=== PATIENT | male | born 1960 | race Caucasian/White ===

== ENCOUNTER 2018-12-22 06:01 | Day surgery (SDC) ==
--- NOTE | 2018-12-16 07:49 | EKG Report ---
Test Performed on : 12/16/2018 07:40:09 AM Test Reason : PAT Blood Pressure : / mmHG Vent. Rate : 093 BPM Atrial Rate : 093 BPM P-R Int : 180 ms QRS Dur : 092 ms QT Int : 358 ms P-R-T Axes : 043 -29 033 degrees QTc Int : 445 ms Normal sinus rhythm. Normal ECG No previous ECGs available Unconfirmed Result
[2018-12-16 08:17] LABS: BASO# 0.13 X1000 (0.0-0.2); BASO% 1.2 % (0.0-0.8); EOS# 0.92 X1000 (0.0-0.7); EOS% 8.5 % (0.0-10.0); HEMATOCRIT 47.7 % (42.0-52.0); IMM GRAN# 0.05 X1000 (0.0-0.04); IMM GRAN% 0.5 % (0.0-0.5); LYMPH% 26.9 % (20.5-51.1); MCH 31.1 PG (27-31); MCHC 33.5 g/dL (33-37); MCV 92.8 FL (81-99); MONO# 0.89 X1000 (0.11-0.59); MONO% 8.3 % (1.7-9.3); MPV 8.9 FL (7.4-10.4); NEUT# 5.89 X1000 (1.4-6.5); NEUT% 54.6 % (42.2-75.2); PLT 347 X1000 (130-400); RBC 5.14 XMIL (4.7-6.1); RDW 14.6 % (11.5-14.5); WBC 10.78 X1000 (4.8-10.8)
[2018-12-16 08:21] LABS: INR 0.93; PROTIME 13.2 Seconds (11.0-16.0)
[2018-12-16 08:22] LABS: PTT 29.7 Seconds (22.3-41.8)
[2018-12-16 08:54] LABS: AGAP 13; BUN 21 mg/dL (8-22); CALCIUM 9.4 mg/dL (8.8-10.2); CHLORIDE 101 mmol/L (98-107); COSMO 282; CREATININE 1.2 mg/dL (0.7-1.2); ESTIMATED GFR > 60; GLUCOSE 93 mg/dL (70-104); POTASSIUM 4.1 mmol/L (3.5-5.1); SODIUM 140 mmol/L (136-145); TCO2 26 mmol/L (25-35)
[2018-12-16 13:31] LABS: URINE SOURCE CLEAN CATCH
[2018-12-16 13:37] LABS: BILIRUBIN URINE NEGATIVE (NEGATIVE); BLOOD URINE NEGATIVE (NEGATIVE); COLOR YELLOW; GLUCOSE URINE NEGATIVE (NEGATIVE); KETONE URINE NEGATIVE (NEGATIVE); LEUKOCYTES URINE NEGATIVE (NEGATIVE); NITRITE URINE NEGATIVE (NEGATIVE); PH URINE 6.5; PROTEIN URINE NEGATIVE (NEGATIVE); SP GRAVITY URINE 1.021; TURBIDITY URINE CLEAR (CLEAR); UR EPITHELIAL CELLS <10 /HPF (<10); URINE BACTERIA NEGATIVE /HPF; URINE RBC <10 /HPF (<10); URINE WBC <10 /HPF (<10); UROBILINOGEN URINE NORMAL (NORMAL)
[2018-12-22] MEDS ORDERED: COLACE ONE (06:13)
[2018-12-22] MEDS ORDERED: LYRICA ONE (06:13)
[2018-12-22] MEDS ORDERED: REGLAN ONE (06:13)
[2018-12-22] MEDS ORDERED: PEPCID ONE (06:13)
[2018-12-22] MEDS ORDERED: KEFZOL 2 GM/D5W 2 GM/50 ML IVPB ONE (06:14)
[2018-12-22] MEDS ORDERED: VERSED ONE (06:14)
[2018-12-22] MEDS ORDERED: FENTANYL ONE (06:14)
[2018-12-22] MEDS ORDERED: CELEBREX ONE (06:14)
[2018-12-22] MEDS ORDERED: LR 1,000 ML ONE (06:14)
[2018-12-22] MEDS ORDERED: DIPRIVAN 1% ONE ×4 (06:15→10:02)
[2018-12-22] MEDS ORDERED: VANCOMYCIN ONE (07:12)
[2018-12-22] MEDS ORDERED: TORADOL ONE (07:12)
[2018-12-22] MEDS ORDERED: DURAMORPH ONE (07:12)
[2018-12-22] MEDS ORDERED: NEOSPORIN G.U. IRRIGANT ONE (07:13)
[2018-12-22] MEDS ORDERED: CYKLOKAPRON 1,000 MG/NS 1,000 MG/100 ML IVPB ONE ×2 (07:13→07:35)
[2018-12-22] MEDS ORDERED: EXPAREL 1.3% ONE (07:13)
[2018-12-22] MEDS ORDERED: SENSORCAINE-MPF 0.5%/EPI 1:200,000 ONE (07:13)
[2018-12-22] MEDS ORDERED: SODIUM CHLORIDE 0.9% ONE (07:13)
[2018-12-22] MEDS ORDERED: OFIRMEV 1000 MG/ISOTONIC SOLN 1,000 MG/100 ML BOTTLE ONE (08:33)
[2018-12-22] MEDS ORDERED: ZOFRAN ONE (08:33)
[2018-12-22] MEDS ORDERED: DECADRON ONE (08:33)
[2018-12-22] MEDS ORDERED: EPHEDRINE ONE (08:54)
[2018-12-22] MEDS ORDERED: NEO-SYNEPHRINE ONE (09:11)
[2018-12-22 09:14] LABS: URINE SOURCE CATH
[2018-12-22 09:19] LABS: BILIRUBIN URINE NEGATIVE (NEGATIVE); BLOOD URINE NEGATIVE (NEGATIVE); COLOR YELLOW; GLUCOSE URINE NEGATIVE (NEGATIVE); KETONE URINE NEGATIVE (NEGATIVE); LEUKOCYTES URINE NEGATIVE (NEGATIVE); NITRITE URINE NEGATIVE (NEGATIVE); PROTEIN URINE NEGATIVE (NEGATIVE); SP GRAVITY URINE 1.018; TURBIDITY URINE CLEAR (CLEAR); UROBILINOGEN URINE NORMAL (NORMAL)
[2018-12-22 09:21] LABS: UR EPITHELIAL CELLS <10 /HPF (<10); URINE BACTERIA NEGATIVE /HPF; URINE RBC <10 /HPF (<10); URINE WBC <10 /HPF (<10)
--- NOTE | 2018-12-22 10:08 | OPERATIVE NOTE ---
PROCEDURE DATE: 12/22/2018 PREOPERATIVE DIAGNOSIS: Degenerative joint disease, right knee. POSTOPERATIVE DIAGNOSIS: Degenerative joint disease, right knee. PROCEDURE PERFORMED: Right total knee replacement. SURGEON: Royce Ball M.D. SUPERVIS[employer]ABRICATION: Alexander Caro. Mr. Caro was necessary for proper retraction and manipulation of the knee during the case. ANESTHESIA: Spinal. COMPLICATIONS: None. PROCEDURE IN DETAIL: A 58-year-old male presents for a right total knee replacement. Risks, benefits, and no guarantees were discussed, and he is willing to proceed. He was taken to the operating room, and satisfactory anesthesia obtained. The right leg was prepped and draped in the usual sterile fashion. A time-out was taken to confirm operative site, procedure, and patient. The leg was wrapped with an Esmarch, and tourniquet inflated to 300 mmHg. A midline incision was made over the front of the knee, followed by a quad tendon-sparing arthrotomy. The patella was everted and resurfaced with freehand technique and subluxed laterally. An intramedullary hole was made in the distal femur with the knee flexed, and the distal femoral cutting block secured in 5 degrees of valgus. Then, 10 mm was taken off the distal femur. The femur was sized to a size 6 DePuy Attune femoral implant. The 4-in-1 block was secured, and the anterior, posterior, and chamfer cuts sequentially made. Afterwards, a notch was created for a posterior stabilized design using the provided notch guide. The knee was flexed, and a PCL retractor placed behind the tibia to protect the neurovascular bundle. The tibial cutting block was secured, and the tibial resection made, referencing extramedullary alignment rods. Afterwards, the flexion-extension gap was noted to be equal with an 8 mm spacer. Tibia was sized to a size 7 tibial tray. Trial reduction was performed with good range of motion and stability. The patella was sized to a 38 medialized dome patella. The lug holes were placed for the patella and femoral implants, and the trial components removed. The bony surfaces were thoroughly irrigated with pulsatile lavage with irrigant. Cement with a gram of vancomycin was then utilized to cement a DePuy Attune size 7 rotating platform tibial base plate, a right size 6 posterior stabilized femoral component, and a 38 medialized dome patella. While the cement cured, the excess cement was removed with a [place] elevator. The joint capsule was injected with Exparel. A Hemovac drain was placed. After curing of the cement, a size 6, 8 mm thick posterior stabilized rotating platform polyethylene bearing was secured into the tibial tray, and the knee reduced. Final range of motion was 0 to 130 degrees of motion with midline patellar tracking. The arthrotomy was copiously irrigated with irrigant. It was closed over the drain with #1 Vicryl in the arthrotomy, 2-0 Vicryl in the subcu, and skin lev on the skin edges. Sterile dressings completed the closure, and the patient was recovered from anesthesia and transferred to the recovery room in stable condition. No intraoperative complications were noted. Instrument count and sponge count were correct at the time of closure. cc: Ilan Ball MD
[2018-12-22] MEDS ORDERED: NS 1,000 ML ONE (10:26)
--- NOTE | 2018-12-22 12:04 | Diag Imaging Result Doc PS360 ---
EXAM: KNEE 1-2 VIEWS-RIGHT INDICATION: R TKA TECHNIQUE: 2 views COMPARISON: None. FINDINGS: There has been a recent right knee arthroplasty. Arthroplasty hardware is in the expected position. There is no evidence of periprosthetic fracture. Anterior skin lev and a drainage catheter are in place. IMPRESSION: Satisfactory postoperative knee. Electronically signed by Ilan Cota 12/22/2018 12:02 PM
[2018-12-22] MEDS ORDERED: OXY IR PO PRN (12:15)
[2018-12-22] MEDS ORDERED: ZOFRAN IV PRN (12:15)
[2018-12-22] MEDS ORDERED: ZOFRAN ODT PO PRN (12:15)
[2018-12-22] MEDS ORDERED: MORPHINE IV PRN ×3 (12:15)
--- NOTE | 2018-12-22 13:51 | PROGRESS NOTE ---
DATE: 12/22/2018 SUBJECTIVE DATA: Mr. Lezama is on postop day zero of a right total knee arthroplasty. He reports he is having some pain in that leg with a 2/10 pain level. OBJECTIVE DATA: There is good sensation right lower extremity. There are good pedal pulses. The bandages are clean and dry. There is negative Homans sign. His vital signs are stable. ASSESSMENT: Degenerative joint disease, right knee, with right knee total arthroplasty. PLAN: Plan on monitoring Mr. Lezama overnight. We will likely discharge him home tomorrow. We will check back on him in the morning. Dictated by SHAQUILLE Cartwright for Ilan Ball MD cc: SHAQUILLE Cartwright MD
[2018-12-22] MEDS: OXY IR PO PRN ×2 (14:59→18:54)
[2018-12-22] MEDS: ULTRAM PO SCH ×2 (14:59→20:51)
[2018-12-22] MEDS: TYLENOL PO SCH ×2 (14:59→20:51)
[2018-12-22] MEDS: KEFZOL 2 GM/D5W 2 GM/50 ML IVPB IV SCH (14:59)
[2018-12-22] MEDS: NS 1,000 ML IV SCH ×2 (15:00→20:52)
[2018-12-22] MEDS: PERIDEX MT SCH (20:50)
[2018-12-22] MEDS: CELEBREX PO SCH (20:51)
[2018-12-22] MEDS: COLACE PO SCH (20:51)
[2018-12-23] MEDS: KEFZOL 2 GM/D5W 2 GM/50 ML IVPB IV SCH (00:05)
[2018-12-23] MEDS: ULTRAM PO SCH ×2 (03:08→08:39)
[2018-12-23] MEDS: TYLENOL PO SCH ×2 (03:08→08:40)
[2018-12-23] MEDS: NS 1,000 ML IV SCH (04:30)
[2018-12-23 06:00] LABS: HEMATOCRIT 36.1 % (42.0-52.0); HEMOGLOBIN 12.2 g/dL (14.0-18.0)
[2018-12-23 06:19] LABS: AGAP 11; BUN 20 mg/dL (8-22); CALCIUM 8.3 mg/dL (8.8-10.2); CHLORIDE 99 mmol/L (98-107); COSMO 269; CREATININE 1.2 mg/dL (0.7-1.2); ESTIMATED GFR > 60; GLUCOSE 132 mg/dL (70-104); POTASSIUM 3.7 mmol/L (3.5-5.1); SODIUM 132 mmol/L (136-145); TCO2 22 mmol/L (25-35)
[2018-12-23 07:33] VITALS: BP 123/84
--- NOTE | 2018-12-23 08:01 | PROGRESS NOTE ---
DATE: 12/23/2018 SUBJECTIVE: Mr. Lezama is seen status post total knee replacement. At the present time he is afebrile with stable vital signs. His pain is well controlled. We will plan on discontinuing all lines and mobilizing him today. There are no signs of active bleeding, infection, or DVT. He can be discharged home today for outpatient followup. PLAN: He will begin outpatient therapy. He is to continue his regular medicines, as well as [place] 10 as needed for pain, full strength aspirin twice a day for DVT prophylaxis and antibiotics for a week for prophylaxis against infection. We will see him back in roughly 12 days for followup. He is to return in the interim for any worsening signs or symptoms. cc: Ilan Ball MD
[2018-12-23] MEDS: PERIDEX MT SCH (08:40)
[2018-12-23] MEDS: COLACE PO SCH (08:40)
[2018-12-23] MEDS: CELEBREX PO SCH (08:40)
[2018-12-23] MEDS ORDERED: EFFEXOR XR PO SCH (09:00)
[2018-12-23] MEDS ORDERED: ASPIRIN PO SCH (09:00)
[2018-12-23] MEDS ORDERED: PRINZIDE 10/12.5MG PO SCH (09:00)
== END 2018-12-23 11:21 | disposition home or self-care (01) ==
LOC: OR 06:01 → 4N 06:01 → OR 12-23 11:21
PROVIDERS: ATTEND Orthopaedic Surgery Adult Reconstructive Orthopaedic Surgery
CPT/HCPCS: 73560; 80048; 81001; 85014; 85018; 85025; 85610; 85730; 86850; 86900; 86901; 88305; 88311; 93005; 93010; 94761; 94799; 97110; 97116; 97162; A9270; C9290; J0131; J0690; J1100; J1885; J2250; J2274; J2275; J2370; J2405; J3010; J3370; J7030; J7120; Q9974